=== PATIENT | female | born 1970 | race African-American/Black ===

== ENCOUNTER 2020-11-28 07:26 | Emergency (ER) | payer OTHER ==
[~2020-11-28] VITALS: Ht 167.6 cm; Wt 91.0 kg
[2020-11-28] MEDS ORDERED: MAGNESIUM/ALUMINUM HYDROXIDE/SIMETHICONE 30ML UDC PO ONE (09:00)
[2020-11-28 09:02] LABS: EOSINOPHILS % 1.1 % (0.0-5.0); HEMOGLOBIN. 13.1 g/dL (12.0-16.0); LYMPHOCYTES % 45.5 % (20.0-50.0); MEAN CORPUSCULAR HEMOGLOBIN 29.9 pg (28.0-32.0); MEAN PLATELET VOLUME 7.6 fl (7.4-10.4); MONOCYTES % 8.1 % (2.0-8.0); NEUTROPHILS % 44.3 % (40.0-76.0); PLATELET 274 x1000/uL (130-400); RED BLOOD CELL COUNT 4.38 mill/uL (4.2-5.4); RED CELL DISTRIBUTION WIDTH 13.4 % (11.6-14.6)
[2020-11-28 09:04] LABS: CHLORIDE 106 mEq/L (98-107)
[2020-11-28] MEDS ORDERED: OMEP20CA14 MT (09:50)
[2020-11-28 10:00] VITALS: BP 128/78
== END 2020-11-28 10:02 | disposition home or self-care (01) ==
LOC: ER 07:59
DX: R07.89 Other chest pain (principal)
CPT/HCPCS: 36415; 71045; 80053; 84484; 85025; 93005; 99285